=== PATIENT | male | born 1960 | race Caucasian/White ===

== ENCOUNTER 2017-10-30 08:51 | Emergency (ER) | payer SELFPAY ==
[~2017-10-30] VITALS: Ht 188 cm; Wt 100.0 kg
[2017-10-30 09:46] LABS: HEMATOCRIT 44.7 % (39.0-50.0); IMMATURE GRANULOCYTES 0.3 % (0.0-1.0); MEAN CELL VOLUME 93.9 fL CALC (80.0-100.0); MEAN CORPUSCULAR HGB 31.5 pG CALC (26.0-32.0); MEAN CORPUSCULAR HGB CONC 33.6 g/L CALC (32.0-36.0); NEUT# 3.2 thou/uL (1.82-7.42); RED BLOOD COUNT 4.76 mill/uL (4.70-6.10)
[2017-10-30 09:59] LABS: ALKALINE PHOSPHATASE 81 u/l (38-126); ANION GAP 16 (6-22 (CALC)); BILIRUBIN, TOTAL 0.8 mg/dL (0.0-1.4); BUN 13 mg/dL (9-20); BUN/CREATININE RATIO 16 (12-20 (CALC)); CALCIUM 9.7 mg/dL (8.4-10.2); CARBON DIOXIDE 23 mmol/l (22-30); CHLORIDE 105 mmol/l (95-108); CREATININE 0.8 mg/dL (0.7-1.3); GFR > 60 ML/MIN (>=60 (CALC)); GFR FOR AFR.AMER. > 60 ML/MIN (>=60 (CALC)); GLUCOSE 253 mg/dL (75-110); POTASSIUM 4.9 mmol/l (3.5-5.1); SGOT/AST 40 u/l (17-59); SGPT/ALT 55 u/l (21-72); SODIUM 140 mmol/l (137-146)
[2017-10-30] MEDS ORDERED: PREDNISONE50 MG PO (10:01)
[2017-10-30] MEDS ORDERED: ZESTRIL10 M1 PO ×2 (10:01→11:39)
[2017-10-30] MEDS ORDERED: VALTREX1 GM PO (10:01)
[2017-10-30 11:07] LABS: MAGNESIUM 1.5 mg/dL (1.6-2.3)
[2017-10-30 11:29] LABS: URINE BILIRUBIN - DIPSTICK NEGATIVE (NEGATIVE); URINE BLOOD DIPSTICK SMALL (NEGATIVE); URINE CLARITY CLEAR; URINE COLOR YELLOW; URINE GLUCOSE - DIPSTICK 500 mg/dL (NEGATIVE); URINE KETONE NEGATIVE (NEGATIVE); URINE LEUK ESTERASE NEGATIVE (NEGATIVE); URINE NITRITE - DIPSTICK NEGATIVE (Negative); URINE PH 5.5 (4.5-8.0); URINE PROTEIN - DIPSTICK TRACE mg/dL (NEG-TRACE); URINE UROBILINOGEN - DIPSTICK 0.2 E.U./dL (0.2)
[2017-10-30 11:30] LABS: URINE SQUAMOUS EPITHELIAL CELL FEW EPI/hpf (0-FEW)
[2017-10-30] MEDS ORDERED: METFORMIN500 M1 PO (11:39)
[2017-10-30] MEDS ORDERED: NORVASC PO (11:39)
[2017-10-30 11:42] VITALS: BP 195/98
== END 2017-10-30 11:45 | disposition home or self-care (01) | DRG 74 ==
LOC: ED 08:51
PROVIDERS: Emergency Medicine
DX: G51.0 Bell's palsy (principal); E11.9 Type 2 diabetes mellitus without complications; I10 Essential (primary) hypertension; Z79.84 Long term (current) use of oral hypoglycemic drugs

== ENCOUNTER → 2019-01-20 | Outpatient (REF) ==
[~2019-01-20] MED LIST: METFORMIN500 M1 PO; NORVASC PO; PREDNISONE50 MG PO; VALTREX1 GM PO; ZESTRIL10 M1 PO
[2019-01-20 09:24] LABS: CHOLESTEROL HDL RATIO 1.6 (<4.4 (CALC))
== END | disposition home or self-care (01) | DRG 951 ==
LOC: LAB 07:32
PROVIDERS: ATTEND Family Medicine
DX: Z02.6 Encounter for examination for insurance purposes (principal)

== ENCOUNTER → 2019-01-20 | Outpatient (REF) | payer OTHER ==
[2019-01-20 09:01] LABS: HEMATOCRIT 36.4 % (39.0-50.0); HEMOGLOBIN 12.3 g/dl (14.0-18.0); IMMATURE GRANULOCYTES 0.3 % (0.0-5.0); MEAN CELL VOLUME 88.6 fL CALC (80.0-100.0); MEAN CORPUSCULAR HGB 29.9 pG CALC (26.0-32.0); MEAN CORPUSCULAR HGB CONC 33.8 g/L CALC (32.0-36.0); NEUT# 3.89 thou/uL (1.82-7.42); RED BLOOD COUNT 4.11 mill/uL (4.70-6.10); RED CELL DISTRI WIDTH 12.9 % (11.5-15.5)
[2019-01-20 09:21] LABS: ALBUMIN 3.3 g/dL (3.2-5.0); ANION GAP 13 (6-22 (CALC)); BUN 21 mg/dL (9-20); BUN/CREATININE RATIO 18 (12-20 (CALC)); CARBON DIOXIDE 25 mmol/l (22-30); CHLORIDE 96 mmol/l (95-108); CREATININE 1.2 mg/dL (0.7-1.3); GFR > 60 ML/MIN (>=60 (CALC)); GFR FOR AFR.AMER. > 60 ML/MIN (>=60 (CALC)); POTASSIUM 4.5 mmol/l (3.5-5.1); SGOT/AST 46 u/l (17-59); SODIUM 129 mmol/l (137-146)
[2019-01-20 09:22] LABS: ALKALINE PHOSPHATASE 67 u/l (38-126)
[2019-01-20 09:51] LABS: TSH, 3RD GENERATION 6.86 uIU/mL (0.47 - 4.68)
== END | disposition home or self-care (01) | DRG 305 ==
LOC: LAB 07:33
PROVIDERS: ATTEND Family Medicine
DX: I10 Essential (primary) hypertension (principal); E78.5 Hyperlipidemia, unspecified; R73.09 Other abnormal glucose; E55.9 Vitamin D deficiency, unspecified; E11.8 Type 2 diabetes mellitus with unspecified complications

== ENCOUNTER 2019-04-13 07:32 | Day surgery (SDC) | payer OTHER ==
[~2019-04-13 07:32] MED LIST changes: +AMLODIPINE5 MG PO; +ASPIRIN81 MG PO; +CARVEDILOL6.25 MG PO; +HYDROCHLOROT25 MG PO; +LEVOTHYROXIN50 MCG PO; +VALSARTAN320 MG; +VITAMIN D2000 UNI2; +VITAMIN D32000 UNIT PO
[2019-04-13 10:12] VITALS: BP 169/81
[2019-04-13] MEDS ORDERED: LANSOPRAZOLE30 MG PO (10:23)
== END 2019-04-13 10:30 | disposition home or self-care (01) | DRG 812 ==
LOC: ENDO 07:32 → ORM 09:00 → ENDO 09:00
PROVIDERS: ATTEND Surgery
PROC: 0DB98ZX Excision of Duodenum, Via Natural or Artificial Opening Endoscopic, Diagnostic (ICD-10-PCS; principal; 2019-04-13)
PROC: 0DB78ZX Excision of Stomach, Pylorus, Via Natural or Artificial Opening Endoscopic, Diagnostic (ICD-10-PCS; 2019-04-13)
PROC: 0DBK8ZX Excision of Ascending Colon, Via Natural or Artificial Opening Endoscopic, Diagnostic (ICD-10-PCS; 2019-04-13)
PROC: 0DBH8ZX Excision of Cecum, Via Natural or Artificial Opening Endoscopic, Diagnostic (ICD-10-PCS; 2019-04-13)
DX: D64.9 Anemia, unspecified (principal); K29.50 Unspecified chronic gastritis without bleeding; K29.80 Duodenitis without bleeding; B96.81 Helicobacter pylori [H. pylori] as the cause of diseases classified elsewhere; D12.2 Benign neoplasm of ascending colon; D12.0 Benign neoplasm of cecum; I10 Essential (primary) hypertension

== ENCOUNTER 2019-07-01 10:22 | Day surgery (SDC) | payer OTHER ==
[~2019-07-01 10:22] MED LIST changes: +LANSOPRAZOLE30 MG PO; +POT CHLORIDE8 ME1 PO
[2019-07-01 12:52] VITALS: BP 169/77
== END 2019-07-01 13:05 | DRG 392 ==
LOC: ENDO 10:22 → ORM 11:35 → ENDO 13:05
PROVIDERS: ATTEND Surgery
PROC: 0DB98ZX Excision of Duodenum, Via Natural or Artificial Opening Endoscopic, Diagnostic (ICD-10-PCS; principal; 2019-07-01)
DX: K29.80 Duodenitis without bleeding (principal); D64.9 Anemia, unspecified; I10 Essential (primary) hypertension; Z86.19 Personal history of other infectious and parasitic diseases

== ENCOUNTER 2020-06-20 16:46 | Inpatient (IN) | payer OTHER ==
[~2020-06-20] VITALS: Ht 182.9 cm; Wt 97.7 kg
--- NOTE | 2020-06-20 17:00 | NUR ---
PT AMBULATED TO ROOM FOR BEDSIDE TRIAGE
--- NOTE | 2020-06-20 17:20 | NUR ---
PT AO X 3. SKIN PINK WARM AND DRY. REPORTS DIABETIC FOOT ULCER TO OUTSIDE OF LEFT FOOT NEAR TOES. WOUND PRESENTS WITH FOUL ODOR AND PURULENT DRAINAGE.
--- NOTE | 2020-06-20 17:30 | NUR ---
FOOT ULCER CLEANED WITH SALINE IRRIGATION AND CULTURE DONE.
[2020-06-20 17:52] LABS: HEMATOCRIT 33.6 % (39.0-50.0); HEMOGLOBIN 10.6 g/dl (14.0-18.0); IMMATURE GRANULOCYTES 1.1 % (0.0-5.0); MEAN CELL VOLUME 90.8 fL CALC (80.0-100.0); MEAN CORPUSCULAR HGB 28.6 pG CALC (26.0-32.0); MEAN CORPUSCULAR HGB CONC 31.5 g/dL CAL (32.0-36.0); NEUT# 13.49 thou/uL (1.82-7.42); RED BLOOD COUNT 3.7 mill/uL (4.70-6.10)
[2020-06-20 18:09] LABS: ALBUMIN 3.8 g/dL (3.2-5.0); BILIRUBIN, TOTAL 0.5 mg/dL (0.0-1.4); CREATININE 2.4 mg/dL (0.7-1.3); TOTAL PROTEIN 7.5 g/dL (6.3-8.2)
[2020-06-20 18:10] LABS: POTASSIUM 5.7 mmol/l (3.5-5.1)
--- NOTE | 2020-06-20 18:20 | NUR ---
PHOTOS TAKEN OF FOOT ULCER. MEASURES 5CM X 3CM
[2020-06-20 18:33] LABS: URINE BILIRUBIN - DIPSTICK NEGATIVE (NEGATIVE); URINE BLOOD DIPSTICK SMALL (NEGATIVE); URINE CLARITY CLEAR; URINE COLOR YELLOW; URINE GLUCOSE - DIPSTICK NEGATIVE (NEGATIVE); URINE KETONE NEGATIVE (NEGATIVE); URINE LEUK ESTERASE NEGATIVE (Negative); URINE NITRITE - DIPSTICK NEGATIVE (Negative); URINE PH 5.5 (4.5-8.0); URINE PROTEIN - DIPSTICK TRACE mg/dL (NEG-TRACE); URINE SPECIFIC GRAVITY 1.025; URINE UROBILINOGEN - DIPSTICK 0.2 E.U./dL (0.2)
[2020-06-20 18:43] LABS: URINE RBC 0-2 RBC/hpf (0-5); URINE WBC 0-2 WBC/hpf (0-5)
--- NOTE | 2020-06-20 19:15 | NUR ---
PT RESTING. NAD. AT BEDSIDE. ANTIBIOTICS HUNG.
--- NOTE | 2020-06-20 19:38 | NUR ---
FOOT CLEANSED WITH SHURCLEANSE AND TELFA 4X4 MAURI APPLIED. TOLERATED WELL.
[2020-06-20 20:00] LABS: ACT PARTIAL THROMBO TIME 30.5 SECONDS (20.0-32.5); PROTHROMBIN TIME 10.1 SECONDS (9.0-12.5)
[2020-06-20] MEDS ORDERED: ASPIRIN325 MG PO (20:11)
[2020-06-20] MEDS ORDERED: FUROSEMIDE20 MG PO (20:12)
[2020-06-20] MEDS ORDERED: CARVEDILOL25 MG PO (20:15)
--- NOTE | 2020-06-20 20:18 | NUR ---
MED REC COMPLETED. REPORT TO MARILU/NURSE/ICU.
--- NOTE | 2020-06-20 20:20 | NUR ---
PT ARRIVES TO UNIT VIA STRETCHER, ACCOMPANIED BY Nabila YUN RN. PT PIVOTS TO FROM STRETCHER TO BED WITHOUT INCIDENT. ORIENTED TO UNIT, ROOM, BED/TV/LIGHTS AND CALL PABON SYSTEM.
--- NOTE | 2020-06-20 20:25 | NUR ---
PT TO FLOOR VIA STRETCHER WITH VANCO INFUSING VIA PUMP. PT GOWNED. CLOTHES AND SHOE TO FLOOR WITH PT. IS GOING TO BRING DINNER FOR PT.
--- NOTE | 2020-06-20 20:25 | NUR ---
UP TO UNIT TO DROP OFF MCDONALDS.
[2020-06-20 21:00] VITALS: BP 162/70
[2020-06-20 23:20] VITALS: BP 162/70
[2020-06-21] VITALS (10 sets, daily range): BP systolic 129–186; BP diastolic 56–80
--- NOTE | 2020-06-21 00:03 | NUR ---
PT SLEEPING, APPEARS COMFORTABLE, NO APPARENT DISTRESS, RESPIRATIONS REGULAR AND UNLABORED. CALL PAOBN WITHIN REACH.
--- NOTE | 2020-06-21 02:37 | NUR ---
PT SLEEPING, APPEARS COMFORTABLE, NO APPARENT DISTRESS, RESPIRATIONS REGULAR AND UNLABORED. CALL PABON WITHIN REACH.
--- NOTE | 2020-06-21 04:24 | NUR ---
PT SLEEPING, APPEARS COMFORTABLE, NO APPARENT DISTRESS, RESPIRATIONS REGULAR AND UNLABORED. CALL PABON WITHIN REACH.
[2020-06-21 05:10] LABS: HEMATOCRIT 32.2 % (39.0-50.0); HEMOGLOBIN 10.2 g/dl (14.0-18.0); IMMATURE GRANULOCYTES 0.9 % (0.0-5.0); MEAN CELL VOLUME 91.2 fL CALC (80.0-100.0); MEAN CORPUSCULAR HGB 28.9 pG CALC (26.0-32.0); MEAN CORPUSCULAR HGB CONC 31.7 g/dL CAL (32.0-36.0); NEUT# 10.33 thou/uL (1.82-7.42); RED BLOOD COUNT 3.53 mill/uL (4.70-6.10); RED CELL DISTRI WIDTH 14.1 % (11.5-15.5)
[2020-06-21 05:37] LABS: ALBUMIN 3.1 g/dL (3.2-5.0); BILIRUBIN, TOTAL 0.3 mg/dL (0.0-1.4); CREATININE 2.1 mg/dL (0.7-1.3); TOTAL PROTEIN 6.6 g/dL (6.3-8.2)
--- NOTE | 2020-06-21 07:30 | NUR ---
ASSESSMENT IS COMPLETED : PT WAS WARM THIS AM. IV SITE IS FREE FROM REDNESS OR EDEMA. HR IS REG, PULSES ARE STRONG X4, ABD IS SOFT WITH ACTIVE BS. BREATH SOUNDS ARE CLEAR BILATERALLY. DRESSING ON LEFT FOOT IS CDI. CONTINUE TO OBSERVE AND MONITOR.
--- NOTE | 2020-06-21 08:00 | NUR ---
DR CRAMER IN TO VISIT WITH PT.
--- NOTE | 2020-06-21 08:13 | NUR ---
RECEIVED A CALL FROM SKYE AT DR MADERA OFFICE. "UNABLE TO DO THE CONSULT" INQUIRED THE REASON WAS INFORMED THAT THE DR SAID NO. INFORMED DR CRAMER HE WILL GET IN TOUCH WITH DR STEWART RE: PT
--- NOTE | 2020-06-21 09:20 | NUR ---
ATTEMPTED TO CALL WOUND CARE BACK NO ANSWER
--- NOTE | 2020-06-21 09:48 | NUR ---
SPOKE WITH JOSE ANTONIO AT WOUND CARE WILL BRING OVER LITERATURE . CONTINUE TO OSBERVE AND MONITOR.
--- NOTE | 2020-06-21 10:30 | NUR ---
PT CONITNUES TO REST WITH NO DISTRESS NOTED. IV SITE IS FREE FROM REDNESS OR EDEMA.
--- NOTE | 2020-06-21 12:00 | NUR ---
PT IS RELAXING IN BED WITH NO DISTRESS NOTED. IV SITE IS FREE FROM REDNESS OR EDEMA.
--- NOTE | 2020-06-21 13:23 | NUR ---
S: ANN LEACH is a 60 M who presents with diabetic foot infection. He has a history of diabetes, hypertension, kidney disease stage 3, and hypothyroid. All medications in patient's chart were reviewed. O: VS: BP 142/65 mmHg, P 62 bpm, RR 22 breaths/minute, T 96.9 F W 97.7 kg, HT 182.88 cm, Scr= 2.1 mg/dL, CrCl= 53 ml/min A: Blood culture is pending. Preliminary Wound culture is showing gram negative tommy. P: Patient is on Azactam 2g IV Q8H and Flagyl 500 mg IV Q8H . Vancomycin ordered for pharmacy to dose. Start Vancomycin 1g IV Q12H. Vancomycin trough is drawn before the 4th dose on 06/22/20202029. Vancomycin goal trough is between 10-15 mcg/ml. Pharmacy will follow and or advise on antibiotics use as needed.
--- NOTE | 2020-06-21 13:38 | NUR ---
SPEAKING, WITH GURVINDER NO AUTOMATIC QUILLING MACHINE OPERATOR TODAY.
--- NOTE | 2020-06-21 14:36 | NUR ---
SPOUSE IN TO VISIT WITH PT.
--- NOTE | 2020-06-21 14:52 | NUR ---
DR. STEWART CALLED BACK AND INFORMED THIS BARTENDER OF GOING ON VACATION TOMORROW WILL INFORM DR CRAMER
--- NOTE | 2020-06-21 16:07 | NUR ---
PT IS RELAXING IN BED WITH NO DISTRESS NOTED. IV SITE IS FREE FROM REDNESS OR EDEMA.
--- NOTE | 2020-06-21 16:17 | NUR ---
INFORMED PT'S WOFE RE: THE MOVE.
--- NOTE | 2020-06-21 17:35 | NUR ---
pt transferred to pr via wc with spouse and belongings
--- NOTE | 2020-06-21 18:57 | NUR ---
TYLENOL WAS GIVEN FOR A TEMP OF 99.4
--- NOTE | 2020-06-21 19:15 | NUR ---
REPORT RECEIVED FROM Andrew ESCOBAR LPN, CARE OF PT ASSUMED AT THIS TIME.
--- NOTE | 2020-06-21 20:00 | NUR ---
PT RESTING IN BED. PT IS PLEASENT, APPEARS COMFORTABLE AND IN NO DISTRESS, DENIES PAIN OR DISCOMFORT. PHYSICAL ASSESMENT COMPLETE. DRY DRESSING TO LEFT FOOT IS CLEAN, DRY, AND INTACT. PLAN TO LEAVE IN PLACE IF REMAINS UNSOILED UNTIL SEEN BY PODIATRY. PT DENIES NEEDS AT THIS TIME. PLAN OF CARE REVIEWED, PT VERBALIZES UNDERSTANDING, DENIES QUESTIONS. PERSONAL ITEMS WITHIN REACH, BED LOCKED IN LOW POSITION WITH BEDRAILS UP X2. CALL PABON WITHIN REACH, AGREES TO CALL PRN .
[2020-06-22 00:22] VITALS: BP 156/58
--- NOTE | 2020-06-22 00:46 | NUR ---
PT SLEEPING, APPEARS COMFORTABLE, NO APPARENT DISTRESS, RESPIRATIONS REGULAR AND UNLABORED. CALL PABON WITHIN REACH.
[2020-06-22 03:40] VITALS: BP 158/63
--- NOTE | 2020-06-22 04:47 | NUR ---
PT APPEARS TO BE SLEEPING COMFORTABLY, NO APPARENT DISTRESS, RESPIRATIONS REGULAR AND UNLABORED. ITEMS REMAIN WITHIN REACH, BED REMAINS LOCKED IN LOW POSITION W/ BEDRAILS UP X2. CALL PABON REMAINS WITHIN REACH.
[2020-06-22 07:30] VITALS: BP 118/60
--- NOTE | 2020-06-22 07:30 | NUR ---
REPORT RECEIVED FROM LORNA BURRIS. PT RESTING IN BED ON LEFT SIDE WITH EYES CLOSED AND NO SIGNS OF DISTRESS. RESPIRATIONS EVEN AND UNLABORED ON ROOM AIR. SKIN IS HOT AND MOIST; FACE IS FLUSHED; TEMP 99.4. OTHER VS STABLE. PT AWAKENS TO VERBAL STIMULI; C/O MILD PAIN TO BILATERAL FEET. DRESSING TO LEFT FOOT CDI. PT ASSISTED INTO WHEELCHAIR AND OFF UNIT FOR MRI.
--- NOTE | 2020-06-22 08:00 | NUR ---
PRELIMINARY BLOOD CX RESULTS SHOW GRAM POSITIVE COCCI IN 1 OF 4 BOTTLES. PT IS CURRENTLY RECEIVING VANCOMYCIN. NOTIFIED LATRELL HURST. WILL F/U WITH FINAL RESULTS
--- NOTE | 2020-06-22 09:00 | NUR ---
BACK TO UNIT FROM MRI IN STABLE CONDITION. TEMP NOW 99.3. PT C/O BEING COLD; WILL CONTINUE TO MONITOR FOR TEMPERATURE; PT REPORTS THAT HE IS ALWAYS COLD AND SHIVERING. PLAN OF CARE REVIEWED. PT ENCOURAGED TO VERBALIZE CONCERNS. STATES UNDERSTANDING. SAFETY MEASURES IN PLACE. CALL LIGHT WITHIN REACH.
--- NOTE | 2020-06-22 09:25 | NUR ---
TYLENOL GIVEN FOR TEMP UP TO 100.4; ROOM COOLED AND BLANKETS REMOVED. IV FLUIDS INFUSING WITHOUT DIFFICULTY; IV SITE APPEARS HEALTHY. VANCO, FLAGYL, AND AZACTAM ABT INFUSING. TELE ON.
--- NOTE | 2020-06-22 12:00 | NUR ---
PT DECLINED LUNCH STATING THAT HE IS NOT HUNGRY, BUT WILL MAYBE EAT IT LATER. TEMP DOWN AFTER TYLENOL. FACE REMAINS FLUSHED AND MOIST. NO REQUESTS OR CONCERNS AT THIS TIME. USES CALL LIGHT PRN FOR ASSISTANCE.
[2020-06-22 13:42] VITALS: BP 136/60
--- NOTE | 2020-06-22 15:15 | NUR ---
TEMP UP TO 102.4; TYLENOL ADMINISTERED AND ICE PACKS PROVIDED FOR AXILLA AND GROIN. PT UP TO EDGE OF BED TO VOID IN URINAL.
[2020-06-22 15:29] VITALS: BP 155/69
--- NOTE | 2020-06-22 19:07 | NUR ---
TEMPERATURE DOWN; PT SITTING UP IN BED HIGH FOWLERS WATCHING TV. AZACTAM INFUSING NOW WITHOUT DIFFICULTY. CALL LIGHT WITHIN REACH.
--- NOTE | 2020-06-22 21:36 | NUR ---
PT MEDICATED ORDERS PROVIDE. ASSESSMENT COMPLETED. DRESSING TO L.FOOT CDI W/SMALL AMOUNT OF SHADOWING. WILL CONTINUE TO MONITOR. PT WAS SLEEPING, DENIES ANY NEEDS AT THIS TIME.
[2020-06-22 23:24] VITALS: BP 135/59
[2020-06-23] VITALS (10 sets, daily range): BP systolic 131–157; BP diastolic 61–71
--- NOTE | 2020-06-23 01:03 | NUR ---
PT MEDICATED W/IV ANTIBIOTIC THERAPY AND IVF REPLENISHED. DISCUSED DRESSING CHANGE WITH PT AND SCHEDULED FOR THIS MORNING EARLY WHEN LAB COMES. DENIES ANY OTHER NEEDS. DRESSING AT THIS TIME IS CDI W/SMLL AMOUNT OF SHADOWING.
--- NOTE | 2020-06-23 05:19 | NUR ---
PICTURES TAKEN OF L.FOOT AND WOUND CLEANED W/NS AND DRY DRESSING CHANGED. MODERATE AMOUNT OF DARK DRAINAGE TO DRESSING OBSERVED. WOUND COVERED W/TELFA, GAUZE 4X4'S AND KURLEX, SECURED WITH TAPE. PT TOLERATED WELL. URINAL EMPTIED OF 300CC OF DARK YELLOW CLEAR URINE AND ICEWATER FRESHENED AT THIS TIME. PT DENIES ANY OTHER NEEDS, CALL LIGHT AT SIDE AND PT INSTRUCTED TO CALL NEEDS ARISE.
[2020-06-23 05:32] LABS: HEMATOCRIT 30.4 % (39.0-50.0); HEMOGLOBIN 9.3 g/dl (14.0-18.0); MEAN CELL VOLUME 92.1 fL CALC (80.0-100.0); MEAN CORPUSCULAR HGB 28.2 pG CALC (26.0-32.0); MEAN CORPUSCULAR HGB CONC 30.6 g/dL CAL (32.0-36.0); RED BLOOD COUNT 3.3 mill/uL (4.70-6.10); RED CELL DISTRI WIDTH 14.2 % (11.5-15.5)
[2020-06-23 05:52] LABS: CREATININE 1.9 mg/dL (0.7-1.3); MAGNESIUM 1.6 mg/dL (1.6-2.3); POTASSIUM 4.3 mmol/l (3.5-5.1)
--- NOTE | 2020-06-23 10:54 | NUR ---
S: ANN LEACH is a 60 M who presents with diabetic foot ulcer infection osteomyelitis. He has a history of diabetes, hypertension, kidney disease stage 3, and hypothyrodism. All medications in patient's chart were reviewed. O: Trough is 15 on 06/22/2020 VS: BP 147/63 mmHg, P 63 bpm, RR 20 breaths/minute, T 98.0 F W 97.692 kg, HT 182.88 cm, Scr= 1.9 mg/dL, CrCl= 51.3 ml/min A: Blood culture final is showing Staphylococcus Aureus in 2 sets, which is sensitive to Vancomycin. Wound culture final is showing Klebsiella Oxytoca, which is sensitive to Azactam. P: Patient is on Azactam 2g IV Q8H and Flagyl 500 mg IV Q8H. Vancomycin ordered for pharmacy to dose. Continue Vancomycin 1g IV Q12H. Vancomycin trough is drawn before the 4th dose on 06/25/2020 0830. Vancomycin goal trough is between 15-20 mcg/ml. Pharmacy will follow and or advise on antibiotics use as needed.
--- NOTE | 2020-06-23 12:38 | NUR ---
PT WENT TO OR VIA STRETCHER BY LORNA ELLISON. PT IN ROOM
--- NOTE | 2020-06-23 14:47 | NUR ---
PT CAME FROM OR VIA STRETCHER. PT IS A&O X3. WOUND VAC 125MMHG IN LEFT FOOT IN PLACE. SMALL AMOUNT OF RED DRAINAGE NOTED. PT DENIES PAIN AT THIS TIME. PO FLUIDS AND ICE CHIPS PROVIDED. CALL LIGHT IN REACH.
--- NOTE | 2020-06-23 15:06 | NUR ---
ATTEMPTED TO BOOK INFECTIOUS CONSULT @3664 TABLET STATES NO AVAILABLE SLOTS FOR
--- NOTE | 2020-06-23 16:02 | NUR ---
PT IS RESTING IN BED WITH NO S/S OF DISTRESS NORED. PT DENIES ANY NEEDS AT THIS TIME. CALL LIGHT IN REACH.
--- NOTE | 2020-06-23 18:58 | NUR ---
REPORT RECEIVED FROM LORNA MENCHACA. PT RESTING IN BED, NO S/S OF DISTRESS AT THIS TIME. WILL CONTINUE TO MONITOR.
--- NOTE | 2020-06-23 20:45 | NUR ---
PT RESTING IN BED ALERT AND ORIETNED. RESPIRATIONS EVEN AND UNLABORED ON RA. LUNGS SOUND CLEAR. PEDAL PULSES ARE STRONG. WOUND VAC IN PLACE. PT DENIES ANY PAIN. #20 IN THE RAC, INFILTRATED, IV REMOVED, CATHETER INTACT. SAFETY PRECAUTIONS IN PLACE. WILL CONTINUE TO MONITOR.
[2020-06-24] VITALS (8 sets, daily range): BP systolic 142–173; BP diastolic 55–83
--- NOTE | 2020-06-24 00:10 | NUR ---
PT RESTING IN BED. TELE IN PLACE. WOUND VAC IN PLACE. CALL PABON WITHIN REACH, WILL CONTINUE TO MONITOR.
--- NOTE | 2020-06-24 04:29 | NUR ---
PT RESTING IN BED, NO S/S OF DISTRESS AT THIS TIME. SAFETY PRECAUTIONS IN PLACE.
[2020-06-24 05:39] LABS: HEMATOCRIT 30.2 % (39.0-50.0); HEMOGLOBIN 9.4 g/dl (14.0-18.0); MEAN CELL VOLUME 92.4 fL CALC (80.0-100.0); MEAN CORPUSCULAR HGB 28.7 pG CALC (26.0-32.0); MEAN CORPUSCULAR HGB CONC 31.1 g/dL CAL (32.0-36.0); RED BLOOD COUNT 3.27 mill/uL (4.70-6.10); RED CELL DISTRI WIDTH 14.6 % (11.5-15.5)
[2020-06-24 06:02] LABS: CREATININE 1.7 mg/dL (0.7-1.3); POTASSIUM 4.4 mmol/l (3.5-5.1)
--- NOTE | 2020-06-24 12:19 | NUR ---
PATIENT ALERT AND ORIENTED X4, WOUND VAC INTACT, EXPLAINED TO PATIENT THAT HE IS NON WEIGT BEARING ON THE LEFT EXT. LEFT EXT EDEMA, PATIENT DENIED PAIN. REVIEWED MEDICATIONS WITH PATIENT, VERB UNDERSTANDING. EXPLAINED TO PT THAT HE WILL BE GIVEN A MEDICATION CALLED KEFLEX TO SEE IF HE WILL HAVE A REACTION TO pcn. PATIENT STATED THAT HE TERRY BE WILLING TO TAKE THE DRUG FOR TREATMENT
--- NOTE | 2020-06-24 19:45 | NUR ---
PT RESTING IN BED, ALERT AND ORIENTED. RESPIRATIONS EVEN AND UNLABORED ON RA, LUNGS SOUND CLEAR. PEDAL PULSES ARE STRONG. PT REPORTS MILD PAIN IN LEFT FOOT DENIES WANTING ANYTHING FOR HIS PAIN. PT PROVIDED WITH ICE WATER PER REQUEST. SAFETY PRECAUTIONS IN PLACE. WILL CONTINUE TO MONITOR.
--- NOTE | 2020-06-25 00:10 | NUR ---
PT RESTING IN BED. NO S/S OF DISTRESS AT THIS TIME.
--- NOTE | 2020-06-25 04:02 | NUR ---
PT RESTING IN BED, NO S/S OF DISTRESS AT THIS TIME. SAFETY PRECAUTIONS IN PLACE. WILL CONTINUE TO MONITOR.
[2020-06-25 05:29] VITALS: BP 154/64
[2020-06-25 07:09] VITALS: BP 161/66
--- NOTE | 2020-06-25 07:09 | NUR ---
PT RESTING IN BED, NO SIGNS OF DISTRESS NOTED, RESP EVEN AND UNLABORED. DISCUSSED POC, PT ALERT AND ORIENTED X3, VOIDED 500CC OF CLEAR YELLOW URINE, PT HAS SCD TO RLE, LLE HAS +2 EDEMA, WARM TO TOUCH, PEDAL PULSES STRONG AND EQUAL. WOUND VAC TO L FOOT. ASSESSMENT COMPLETED, CALL LIGHT IN REACH,CONTINUE TO MONITOR.
[2020-06-25 11:05] VITALS: BP 141/57
--- NOTE | 2020-06-25 11:27 | NUR ---
PT RESTING IN BED, LLE ROSA WRAPPED PER MD INSTRUCTIONS. ASSISTED PT TO RECLLINER AT BEDSIDE. CALL LIGHT IN REACH,CONTINUE TO MONITOR.
[2020-06-25 14:35] VITALS: BP 165/76
--- NOTE | 2020-06-25 17:16 | NUR ---
PT MEDICATED WITH INSULIN, DISCUSSED PT'S ELEVATED BP, PT DECLINED APRESOLINE. INFORMED PT OF POSSIBILITIES OF STROKE, PT STATES," I DON'T NEED IT". CALL LIGHT IN REACH,CONTINUE TO MONITOR.
[2020-06-25 19:08] VITALS: BP 168/73
--- NOTE | 2020-06-25 22:01 | NUR ---
PT MEDICATED ORDERS PROVIDE. IV ANTIBIOTIC THERAPY ADMINISTERED AT THIS TIME. WOUND VAC SET CONTINUOUS SUCTION @125 W/SMALL AMOUNT OF DARK RED DRAINAGE. DRESSING TO LEFT FOOT CDI.
[2020-06-25 23:58] VITALS: BP 164/66
[2020-06-26] VITALS (7 sets, daily range): BP systolic 141–179; BP diastolic 62–73
--- NOTE | 2020-06-26 01:38 | NUR ---
AIDE IN W/PT, STATES HE WAS SLEEPING, AWOKE TO HER ENTERING ROOM. NO S/O DISTRESS NOTED.
--- NOTE | 2020-06-26 05:20 | NUR ---
PT MEDICATED ORDERS PROVIDE. IV ANTIBIOTIC THERAPY ADMINISTERED AT THIS TIME. PT REFUSED ANY ADDITIONAL BP MEDICATION FOR ELEVATED BP. I TOOK HYDRALAZINE TO ROOM AND ATTEMPTED TO EDUCATE PT ON BP RISK, REFUSED MEDICATION. PT DENIES ANY HEADACHE OR PAIN, NO S/O DISTRESS. DRESSING TO LEFT FOOT CDI AND WOUND VAC SET TO 125 SUCTION.
[2020-06-26 05:46] LABS: HEMATOCRIT 30.9 % (39.0-50.0); HEMOGLOBIN 9.4 g/dl (14.0-18.0); MEAN CELL VOLUME 91.7 fL CALC (80.0-100.0); MEAN CORPUSCULAR HGB 27.9 pG CALC (26.0-32.0); MEAN CORPUSCULAR HGB CONC 30.4 g/dL CAL (32.0-36.0); RED BLOOD COUNT 3.37 mill/uL (4.70-6.10); RED CELL DISTRI WIDTH 14.6 % (11.5-15.5)
[2020-06-26 06:08] LABS: ANION GAP 11 (6-22 (CALC)); BUN 28 mg/dL (9-20); BUN/CREATININE RATIO 21 (12-20 (CALC)); CARBON DIOXIDE 20 mmol/l (22-30); CHLORIDE 109 mmol/l (95-108); CREATININE 1.3 mg/dL (0.7-1.3); GFR 57 ML/MIN (>=60 (CALC)); GFR FOR AFR.AMER. > 60 ML/MIN (>=60 (CALC)); MAGNESIUM 1.8 mg/dL (1.6-2.3); SODIUM 135 mmol/l (137-146)
--- NOTE | 2020-06-26 07:25 | NUR ---
REPORT RECEIVED FROM LORNA CALHOUN. PT RESTING IN BED SEMI FOWLERS; ALERT AND ORIENTED WITH FLAT AFFECT. DENIES PAIN CURRENTLY. RESPIRATIONS EVEN AND UNLABORED ON ROOM AIR. ROSA WRAP DRESSING TO LEFT FOOT CDI; WOUND VAC INTACT TO SUCTION 125MMGH; BLOODY DRAINAGE IN CANISTER. GOOD CSM TO TOES. PLAN OF CARE REVIEWED. PT ENCOURAGED TO VERBALIZE CONCERNS. STATES UNDERSTANDING. SAFETY MEASURES IN PLACE. CALL LIGHT WITHIN REACH.
--- NOTE | 2020-06-26 08:11 | NUR ---
DR. CRAMER AT BEDSIDE FOR EVAL AND DISCUSS POC INCLUDING PLAN FOR PICC LINE INSERTION AND OUTPATIENT ABT.
--- NOTE | 2020-06-26 10:20 | NUR ---
OFF UNIT VIA WHEELCHAIR IN STABLE CONDITION WITH HOSPITAL TELEVISION RENTAL CLERK TO RADIOLOGY FOR PICC LINE INSERTION.
--- NOTE | 2020-06-26 10:42 | NUR ---
BACK TO UNIT VIA WHEELCHAIR IN STABLE CONDITION.
--- NOTE | 2020-06-26 13:24 | NUR ---
BLOOD PRESSURE ELEVATED DURING THE MORNING; CURRENTLY DOWN TO 141/73 WHILE RESTING IN BED AND LIGHTS OFF FOR NAP. DOUBLE LUMEN POWER PICC DRESSING CDI AND BOTH LUMENS FLUSH WITH GOOD BLOOD RETURN. VOIDING CLEAR YELLOW URINE IN BEDSIDE URINAL. NO REQUESTS OR CONCERNS AT THIS TIME.
--- NOTE | 2020-06-26 15:10 | NUR ---
JONAH AT BEDSIDE; REMOVED WOUND VAC. BLISTER NOTED TO BOTTOM OF FOOT; QUICKLY DEBRIDED BY SURGEON. NEW ORDERS TO DISCONTINUE WOUND VAC DUE TO IMPAIRED SURROUNDING TISSUE. CHANGE DRESSING TO MOIST TO DRY TID. PHOTOS TAKEN AND PLACED IN CHART. DISCUSSED PLAN TO F/U WITH HIM IN THE OFFICE ALONG WITH WOUND CARE, HOME HEALTH, AND OUTPATIENT IV ABT.
--- NOTE | 2020-06-26 16:00 | NUR ---
MOIST TO DRY DRESSING PLACED WHILE AT BEDSIDE TO OBSERVE. PT TOLERATED WELL.
--- NOTE | 2020-06-26 21:15 | NUR ---
REPORT CALLED TO [facility] .
--- NOTE | 2020-06-26 21:41 | NUR ---
PT MEDICATED ORDERS PROVIDE AND ASSESSMENT COMPLETED AT THIS TIME. DRESSING TO ABD GENEVIEVE DRAIN INSERTION SITE CDI. INCISIONS TO ABD X4 W/FLORENCIO APPEARS HEALTHY.
--- NOTE | 2020-06-26 21:41 | NUR ---
PT MEDICATED AT THIS TIME AND ASSESSMENT COMPLETED AT THIS TIME. NO S/O DISTRESS NOTED AT THIS TIME. DISCUSSED POC AND DRESSING CHANGE, PT AGREES TO DRESSING CHANGE W/MIDNIGHT V/S. PT REFUSES HEPARIN MEDICATION STATING "I AM MOVING AROUND ENOUGH," PT ALSO REFUSED NOVOLOG INSULIN STATING THAT HIS SUGAR WAS GOOD ALL DAY. ANTIBIOTIC THERAPY ADMINISTERED AT THIS TIME.
--- NOTE | 2020-06-27 00:05 | NUR ---
DRESSING TO LEFT FOOT WOUND CHANGED WET TO DRY. PT TOLERATED WELL. DENIES ANY OTHER NEEDS.
--- NOTE | 2020-06-27 02:15 | NUR ---
PT SLEEPING, NO S/O DISTRESS NOTED. CALL LIGHT AT SIDE.
--- NOTE | 2020-06-27 02:25 | NUR ---
GENEVIEVE DRAIN EMPTIED OF 350CC OF ORANGE URINE. PRICE APPEARS TO BE DRAINING A LITTLE MORE URINE, WILL EMPTY AND MEASURE IN AM. PT SLEEPING SOUNDLY, AWOKE TO MY VOICE, BUT QUICKLY RETURNED TO WORK. GUARDS X2 AT BEDSIDE.
[2020-06-27 03:45] VITALS: BP 174/75
--- NOTE | 2020-06-27 05:10 | NUR ---
PT MEDICATED ORDERS PROVIDE AND BLOOD DRAWN FOR LABS, IV ANTIBOTIC THERAPY ADMINISTERED AT THIS TIME. PT DENIES ANY OTHER NEEDS AT THIS TIME.
[2020-06-27 05:50] LABS: HEMATOCRIT 28.8 % (39.0-50.0); HEMOGLOBIN 9.1 g/dl (14.0-18.0); IMMATURE GRANULOCYTES 1.2 % (0.0-5.0); MEAN CELL VOLUME 89.7 fL CALC (80.0-100.0); MEAN CORPUSCULAR HGB 28.3 pG CALC (26.0-32.0); MEAN CORPUSCULAR HGB CONC 31.6 g/dL CAL (32.0-36.0); NEUT# 7.94 thou/uL (1.82-7.42); RED BLOOD COUNT 3.21 mill/uL (4.70-6.10); RED CELL DISTRI WIDTH 14.3 % (11.5-15.5)
[2020-06-27 06:05] LABS: ANION GAP 10 (6-22 (CALC)); BUN 24 mg/dL (9-20); BUN/CREATININE RATIO 19 (12-20 (CALC)); CARBON DIOXIDE 21 mmol/l (22-30); CHLORIDE 108 mmol/l (95-108); CREATININE 1.3 mg/dL (0.7-1.3); GFR 57 ML/MIN (>=60 (CALC)); GFR FOR AFR.AMER. > 60 ML/MIN (>=60 (CALC)); POTASSIUM 3.9 mmol/l (3.5-5.1); SODIUM 135 mmol/l (137-146)
--- NOTE | 2020-06-27 06:22 | NUR ---
PICC LINE FLUSHED OF ANTIBIOTIC COMPLETED THERAPY AND HEP LOCKED AT THIS TIME.
[2020-06-27 07:25] VITALS: BP 166/74
--- NOTE | 2020-06-27 07:26 | NUR ---
REPORT RECEIVED FROM LORNA CALHOUN. PT RESTING IN BED SEMI FOWLERS; ALERT AND ORIENTED. DENIES PAIN CURRENTLY. RESPIRATIONS EVEN AND UNLABORED ON ROOM AIR. BP ELEVATED WITH SBP IN THE 160S. ACCU CHECK 100. DRESSING TO LEFT FOOT CDI AND ELEVATED ON PILLOW. SWELLING IMPROVED; ANKLE EDEMA AT 2+; STRONG PEDAL PULSE; GOOD CSM. PLAN OF CARE REVIEWED. PT ENCOURAGED TO VERBALIZE CONCERNS. STATES UNDERSTANDING. SAFETY MEASURES IN PLACE. CALL LIGHT WITHIN REACH.
--- NOTE | 2020-06-27 07:49 | NUR ---
DR. MCKENZIE AT BEDSIDE; REMOVED LEFT FOOT DRESSING TO ASSESS DIABETIC ULCER TO LATERAL ASPECT OF FOOT. BLISTER IMPROVED AND WOUND BED APPEARS HEALTHY. VERBALIZED OK TO DC HOME WITH F/U APPT ON 07/03. NEW MOIST TO DRY DRESSING APPLIED; PT TOLERATED WELL. AGAIN ELEVATED ON PILLOW.
--- NOTE | 2020-06-27 08:13 | NUR ---
DR. CRAMER AT BEDSIDE FOR EVAL AND TO DISCUSS POC INCLUDING DISCHARGE HOME WITH WOUND CARE AND IV ABT.
[2020-06-27] MEDS ORDERED: CEFAZOLIN SODIUM2 GM IV (09:56)
[2020-06-27 10:30] VITALS: BP 171/67
--- NOTE | 2020-06-27 14:57 | NUR ---
ANCEF COMPLETED. PT RESTING IN BED SEMI FOWLERS WATCHING TV. CASE MANAGEMENT INVOLVED WITH INSURANCE AND HOME HEALTH FOR DISCHARGE PLANS.
[2020-06-27 15:00] VITALS: BP 172/66
--- NOTE | 2020-06-27 15:57 | NUR ---
BLOOD PRESSURE ELEVATED IN THE AFTERNOON; PT DECLINED PRN APRESOLINE STATING THAT IT WILL GO DOWN ON ITS OWN. SBP CURRENTLY IN THE 170'S; PT AGREES TO RECEIVE APRESOLINE; GIVEN AT THIS TIME. DRESSING CHANGED TO LEFT FOOT; PT TOLERATED WELL.
--- NOTE | 2020-06-27 16:34 | NUR ---
NEW AUTOS DELIVERY DRIVER AT BEDSIDE TO DISCUSS OPTIONS WITH OUTPATIENT IV THERAPY.
--- NOTE | 2020-06-27 18:00 | NUR ---
DISCHARGE DELAYED. PT WILL REMAIN IN HOSPITAL TO RECEIVE IV ABT AND DRESSING CHANGES. AT BEDSIDE. PT DENIES PAIN. SITTING UP EATING DINNER. NO REQUESTS OR CONCERNS AT THIS TIME.
[2020-06-27 19:17] VITALS: BP 161/67
--- NOTE | 2020-06-27 19:48 | NUR ---
PT IN BED WATCHING TV. DENIES ANY NEEDS AT THIS TIME. DRESSING CDI, FOOT ELEVATED W/1X PILLOW.
--- NOTE | 2020-06-27 22:58 | NUR ---
PT MEDICATED ORDERS PROVIDE. PT REFUSED NOVOLOG, I WASTED WHAT WAS DRAWN AND I WAS LEAVING THE ROOM, PT DECIDED HE WANTED TO TAKE HIS INSULIN AFTERALL. I PULLED AN ADDITIONAL DOSE AND ADMINISTERED 2UN FOR A BS OF 182 ORDERS PROVIDE. IV ANTIBIOTIC THERAPY IS RUNNING TO PICC IN [facility], SITE APPEARS HEALTHY AND IS PATENT. PT DENIED ANY OTHER NEEDS. DRESSING TO LEFT FOOT IS CDI AND FOOT IS ELEVATED X1 PILLOW.
[2020-06-28 00:10] VITALS: BP 169/67
--- NOTE | 2020-06-28 02:20 | NUR ---
PT SLEEPING SOUNDLY, DID AWAKE TO MY ENTERING ROOM, BUT PROMPTLY RETURNED TO SLEEP. NO S/O DISTRESS NOTED.
[2020-06-28 04:00] VITALS: BP 163/68
--- NOTE | 2020-06-28 05:35 | NUR ---
PT MEDICATED ORDERS PROVIDE AND IS ASKING FOR DRESSING CHANGE TO L.FOOT. DRESSING IS CDI, BUT DRESSING CHANGE PERFORMED AT THIS TIME, WET TO DRY.
--- NOTE | 2020-06-28 06:26 | NUR ---
ANTIBIOTIC THERAPY COMPLETE AT THIS TIME. PICC LINE FLUSHED W/NS AND HEP LOCKED W/HEPARIN ORDERS PROVIDE.
--- NOTE | 2020-06-28 07:15 | NUR ---
REPORT RECEIVED FROM LORNA CALHOUN. PT RESTING IN BED SEMI FOWLERS; ALERT AND ORIENTED. DENIES PAIN. RESPIRATIONS EVEN AND UNLABORED ON ROOM AIR. VSS STABLE; SBP IN THE 130S. TEMP OF 99.4. DRESSING TO LEFT FOOT CDI. ACCU CHECK 108. PLAN OF CARE REVIEWED. PT ENCOURAGED TO VERBALIZE CONCERNS. STATES UNDERSTANDING. SAFETY MEAURES IN PLACE. CALL LIGHT WITHIN REACH.
[2020-06-28 08:11] VITALS: BP 136/62
--- NOTE | 2020-06-28 12:00 | NUR ---
NO CHANGES IN CONDITION. PICC LINE APPEARS HEALTHY; FLUSHES WELL WITH GOOD BLOOD RETURN. LEG ELEVATED. NO REQUESTS OR CONCERNS.
--- NOTE | 2020-06-28 15:00 | NUR ---
DURING DRESSING TO LEFT FOOT NEW POSSIBLE ABCESS NOTED TO BOTTOM OF FOOT WHERE BLISTER IS HEALING WITH BLOODY, PURULENT DISCHARGE ON DRESSING. RAJAT HURST AND DR. KRUGER NOTIFIED. PT TO SEE DR. MCKENZIE IN HIS OFFICE FOR FOLLOW UP THIS Friday06/30/20 AT 0800. PHOTO TAKEN AND PLACED IN CHART. NEW DRESSING APPLIED.
--- NOTE | 2020-06-28 16:33 | NUR ---
CASE MANAGMENT AT BEDSIDE TO DISCUSS DISCHARGE PLANS; PT WILL HAVE TO STAY ANOTHER NIGHT. UNABLE TO PROVIDE IV THERAPY AT THIS TIME; WILL REASESS TOMORROW. PT NOTIFED AND STATES UNDERSTANDING.
--- NOTE | 2020-06-28 17:10 | NUR ---
4 UNITS OF INSULIN GIVEN FOR GLUCOSE OF 199.
--- NOTE | 2020-06-28 18:21 | NUR ---
AT BEDSIDE TO ASSIST PATIENT WITH SHOWER AND LINEN CHANGE.
--- NOTE | 2020-06-28 18:33 | NUR ---
AND PATIENT NOTIFIED OF PLANNED DISCHARGE IMMEDIATELY AFTER 0600 ANCEF DOSE TOMORROW 06/29/20. COMPANY WITH IV MEDICATION WILL BE AT THEIR HOUSE AT 0800 TO SET UP IV THERAPY PER CASE MANAGEMENT. DISCHARGE INSTRUCTIONS GIVEN AND ALL PAPERWORK PROVIDED TO TO TAKE HOME. PT STATES UNDERSTANDING. SITTING UP ON EDGE OF BED AFTER SHOWER.
[2020-06-28 19:00] VITALS: BP 172/69
--- NOTE | 2020-06-28 19:00 | NUR ---
REPORT RECEIVED FROM LORNA ARROYO. PT RESTING IN BED, NO S/S OF DISTRESS AT THIS TIME. WILL CONTINUE TO MONITOR.
--- NOTE | 2020-06-28 20:15 | NUR ---
PT RESTING IN BED, ALERT AND ORIENTED. RESPIRATIONS EVEN AND UNLABORED ON RA. LUNGS SOUND CLEAR. PEDAL PULSES ARE STRONG. PT DENIES ANY PAIN OR DISCOMFORT AT THIS TIME. DRESSING TO LEFT FOOT CDI. PICC IN UPPER RIGHT APPEARS HEALTHY AND PATENT. SAFETY PRECAUTIONS IN PLACE. WILL CONTINUE TO MONITOR.
--- NOTE | 2020-06-29 00:34 | NUR ---
PT RESTING IN BED, ALERT AND ORIENTED, WATCHING TV. ORDERS FOR TELEMETRY ACTIVE HOWEVER PT HAS A DISCHARGER ORDER IN FOR THE AM, PER PHARMACY TECHNOLOGIST PT WITH ACTIVE TELEMETRY ORDERS HAS TO HAVE SIGNALER ON, TELENETRY MONITOR REAPLIED TO PT. SAFETY PRECAUTIONS IN PLACE. WILL CONTINUE TO MONITOR.
[2020-06-29 01:12] VITALS: BP 167/67
--- NOTE | 2020-06-29 04:10 | NUR ---
PT RESTING IN BED, NO S/S OF DISTRESS AT THIS TIME. SAFETY PRECAUTIONS IN PLACE. WILL CONTINUE TO MONITOR.
[2020-06-29 04:23] VITALS: BP 167/69
[2020-06-29 05:29] LABS: HEMATOCRIT 28.6 % (39.0-50.0); HEMOGLOBIN 8.9 g/dl (14.0-18.0); MEAN CELL VOLUME 90.2 fL CALC (80.0-100.0); MEAN CORPUSCULAR HGB 28.1 pG CALC (26.0-32.0); MEAN CORPUSCULAR HGB CONC 31.1 g/dL CAL (32.0-36.0); RED BLOOD COUNT 3.17 mill/uL (4.70-6.10); RED CELL DISTRI WIDTH 14.4 % (11.5-15.5)
[2020-06-29 05:52] LABS: ANION GAP 10 (6-22 (CALC)); BUN 18 mg/dL (9-20); BUN/CREATININE RATIO 15 (12-20 (CALC)); CARBON DIOXIDE 22 mmol/l (22-30); CHLORIDE 106 mmol/l (95-108); CREATININE 1.2 mg/dL (0.7-1.3); GFR > 60 ML/MIN (>=60 (CALC)); GFR FOR AFR.AMER. > 60 ML/MIN (>=60 (CALC)); POTASSIUM 3.9 mmol/l (3.5-5.1); SODIUM 134 mmol/l (137-146)
--- NOTE | 2020-06-29 06:44 | NUR ---
Discharge instructions given. Patient verbalizes understanding of same. Discharged in stable condition via Wheelchair to Home with family. All belongings sent with pt.
== END 2020-06-29 06:44 | disposition home or self-care (01) | DRG 623 ==
LOC: ED 16:46 → ED-I 17:26 → ED 17:26 → ED-I 19:15 → ED 19:40 → ICU 19:41 → MS2 06-21 15:29
PROVIDERS: Nurse Practitioner; ADMIT Internal Medicine; ATTEND Internal Medicine
PROC: 0JBR0ZZ Excision of Left Foot Subcutaneous Tissue and Fascia, Open Approach (ICD-10-PCS; principal; 2020-06-23)
PROC: 0HDNXZZ Extraction of Left Foot Skin, External Approach (ICD-10-PCS; 2020-06-26)
PROC: 02HV33Z Insertion of Infusion Device into Superior Vena Cava, Percutaneous Approach (ICD-10-PCS; 2020-06-26)
PROC: B518ZZA Fluoroscopy of Superior Vena Cava, Guidance (ICD-10-PCS; 2020-06-26)
DX: E11.69 Type 2 diabetes mellitus with other specified complication (principal); M86.172 Other acute osteomyelitis, left ankle and foot; L97.429 Non-pressure chronic ulcer of left heel and midfoot with unspecified severity; R78.81 Bacteremia; L03.116 Cellulitis of left lower limb; E11.621 Type 2 diabetes mellitus with foot ulcer; S90.822A Blister (nonthermal), left foot, initial encounter; N17.9 Acute kidney failure, unspecified; E11.22 Type 2 diabetes mellitus with diabetic chronic kidney disease; I12.9 Hypertensive chronic kidney disease with stage 1 through stage 4 chronic kidney disease, or unspecified chronic kidney disease; N18.3 Chronic kidney disease, stage 3 (moderate); E03.9 Hypothyroidism, unspecified; E87.5 Hyperkalemia; B96.89 Other specified bacterial agents as the cause of diseases classified elsewhere; Z88.0 Allergy status to penicillin; Z11.59 Encounter for screening for other viral diseases
CPT/HCPCS: A9579; Q3014; S0073